=== PATIENT | female | born 1945 | race Native Hawaiian/Other Pacific Islander ===

== ENCOUNTER 2016-05-09 12:52 | Outpatient (CLI) | payer OTHER ==
[2016-05-09 13:43] LABS: PLATELET COUNT 273 K/uL (152-353)
[2016-05-09 15:19] LABS: SODIUM 136 mmol/L (136-145)
== END 2016-05-09 20:12 | disposition home or self-care (01) ==
LOC: LABW 12:52
PROVIDERS: Nurse Practitioner
DX: R53.83 Other fatigue (principal); E55.9 Vitamin D deficiency, unspecified; E78.00 Pure hypercholesterolemia, unspecified
CPT/HCPCS: 36415; 80053; 80061; 82306; 82607; 84443; 85027

== ENCOUNTER 2016-05-17 12:51 | Outpatient (CLI) | payer OTHER | END 2016-05-17 14:51 | disposition home or self-care (01) | LOC: MAMMO 12:51 | DX: Z12.31 Encounter for screening mammogram for malignant neoplasm of breast (principal); M81.0 Age-related osteoporosis without current pathological fracture | CPT/HCPCS: G0202-TC ==

== ENCOUNTER 2017-09-26 08:25 | Day surgery (SDC) | payer OTHER ==
[2017-09-26 09:03] LABS: PLATELET COUNT 281 K/uL (152-353)
[2017-09-26 09:14] LABS: POTASSIUM 4.2 mmol/L (3.6-5.2)
== END 2017-09-26 12:15 | disposition home or self-care (01) ==
LOC: OR 08:25
PROVIDERS: Student in an Organized Health Care Education/Training Program
PROC: 0HBDXZZ Excision of Right Lower Arm Skin, External Approach (ICD-10-PCS; principal; 2017-09-26)
PROC: 0HQDXZZ Repair Right Lower Arm Skin, External Approach (ICD-10-PCS; 2017-09-26)
DX: C44.622 Squamous cell carcinoma of skin of right upper limb, including shoulder (principal)
CPT/HCPCS: 80053; 85027; J2001; J2250; J2704; J3490

== ENCOUNTER 2018-11-29 14:38 | Outpatient (CLI) | payer OTHER ==
[2018-11-29 16:04] LABS: PLATELET COUNT 293 K/uL (152-353)
== END 2018-11-29 20:01 | disposition home or self-care (01) ==
LOC: LAB 14:38
PROVIDERS: Nurse Practitioner
DX: Z00.00 Encounter for general adult medical examination without abnormal findings (principal); E03.8 Other specified hypothyroidism; E53.8 Deficiency of other specified B group vitamins; E55.9 Vitamin D deficiency, unspecified; R35.0 Frequency of micturition
CPT/HCPCS: 80053; 80061; 82306; 82607; 84443; 85027

== ENCOUNTER 2019-01-19 06:03 | Emergency (ER) | payer OTHER ==
[~2019-01-19] VITALS: Ht 160 cm; Wt 47.2 kg
[2019-01-19 06:10] VITALS: TEMP 98
[2019-01-19 06:39] LABS: PLATELET COUNT 282 K/uL (152-353)
[2019-01-19 06:43] LABS: POTASSIUM 3.9 mmol/L (3.6-5.2); SODIUM 143 mmol/L (136-145)
[2019-01-19 08:00] VITALS: BP 115/66
== END 2019-01-19 08:20 | disposition home or self-care (01) ==
LOC: ED 06:03
PROVIDERS: Family Medicine
DX: F41.0 Panic disorder [episodic paroxysmal anxiety] (principal); E03.8 Other specified hypothyroidism; I44.7 Left bundle-branch block, unspecified
CPT/HCPCS: 80053; 82550; 84439; 84443; 84481; 84484; 85027; 85379; 87502; 93005; 99283; 99284

== ENCOUNTER 2019-04-16 17:02 | Outpatient (CLI) | payer OTHER | END 2019-04-16 19:30 | disposition home or self-care (01) | LOC: LABW 17:02 | DX: E03.8 Other specified hypothyroidism (principal) | CPT/HCPCS: 84439; 84443; 84481 ==

== ENCOUNTER 2020-09-26 12:30 | Emergency (ER) | payer OTHER | END 2020-09-26 13:58 | disposition home or self-care (01) | LOC: ED 12:30 | DX: H65.191 Other acute nonsuppurative otitis media, right ear (principal); K02.9 Dental caries, unspecified; J32.2 Chronic ethmoidal sinusitis | CPT/HCPCS: 99282 ==

== ENCOUNTER 2020-10-18 00:46 | Emergency (ER) | payer OTHER ==
[~2020-10-18] VITALS: Ht 160 cm; Wt 50.8 kg
[2020-10-18 01:06] VITALS: TEMP 98.9
[2020-10-18 02:02] VITALS: BP 175/80
== END 2020-10-18 02:03 | disposition home or self-care (01) ==
LOC: ED 00:46
DX: K02.9 Dental caries, unspecified (principal); K04.7 Periapical abscess without sinus; R68.84 Jaw pain
CPT/HCPCS: 99282

== ENCOUNTER 2021-01-14 11:06 | Outpatient (CLI) | payer OTHER | END 2021-01-14 20:19 | disposition home or self-care (01) | LOC: RAD 11:06 | PROVIDERS: ATTEND Nurse Practitioner Family | DX: R06.02 Shortness of breath (principal); J44.9 Chronic obstructive pulmonary disease, unspecified ==

== ENCOUNTER 2021-03-30 11:15 | Outpatient (CLI) | payer OTHER | END 2021-03-30 19:03 | disposition home or self-care (01) | LOC: RAD 11:15 | PROVIDERS: ATTEND Nurse Practitioner Family | DX: R06.02 Shortness of breath (principal) ==

== ENCOUNTER 2022-02-28 18:01 | Emergency (ER) | payer OTHER ==
[~2022-02-28] VITALS: Ht 160 cm; Wt 47.6 kg
[2022-02-28 18:04] VITALS: TEMP 98.4
[2022-02-28 19:33] VITALS: BP 142/78
== END 2022-02-28 19:30 | disposition home or self-care (01) ==
LOC: ED 18:01
DX: K02.9 Dental caries, unspecified (principal)
CPT/HCPCS: 99282

== ENCOUNTER 2022-07-18 11:11 | Outpatient (CLI) | payer OTHER | END 2022-07-18 21:19 | LOC: RAD 11:11 | PROVIDERS: ATTEND Nurse Practitioner | DX: Z01.818 Encounter for other preprocedural examination (principal) ==

== ENCOUNTER 2022-08-19 15:39 | Emergency (ER) | payer OTHER ==
[~2022-08-19] VITALS: Ht 160 cm; Wt 47.2 kg
[2022-08-19 18:20] VITALS: BP 110/65; TEMP 98.2
== END 2022-08-19 18:20 | disposition home or self-care (01) ==
LOC: ED 15:39
DX: K08.109 Complete loss of teeth, unspecified cause, unspecified class (principal)
CPT/HCPCS: 99281

== ENCOUNTER 2023-05-02 14:27 | Emergency (ER) | payer OTHER ==
[~2023-05-02] VITALS: Ht 160 cm; Wt 54.4 kg
[2023-05-02 15:19] LABS: PLATELET COUNT 293 K/uL (152-353)
[2023-05-02] MEDS ORDERED: PAIN/FEVER120 MG RE (16:41)
[2023-05-02 16:50] VITALS: BP 118/53; TEMP 98.4
== END 2023-05-02 16:50 | disposition home or self-care (01) ==
LOC: ED 14:27
PROVIDERS: Family Medicine
DX: M54.59 Other low back pain (principal); I10 Essential (primary) hypertension; J44.9 Chronic obstructive pulmonary disease, unspecified; Z79.899 Other long term (current) drug therapy
CPT/HCPCS: 80053; 80307; 81000; 85027; 99283